=== PATIENT | male | born 1965 | race Caucasian/White ===

== ENCOUNTER 2017-07-22 13:10 | Emergency (ER) | payer BC, MEDICAID, OTHER ==
[~2017-07-22] VITALS: Ht 182.9 cm; Wt 105.4 kg
[2017-07-22] MEDS ORDERED: SODIUM CHLORIDE 0.9% 1,000ML IVBOLUS ONE ×2 (14:00→16:00)
[2017-07-22] MEDS ORDERED: SODIUM CHLORIDE FLUSH 10ML SYR IVF ONE (14:00)
[2017-07-22 14:14] LABS: BASOPHILS # (AUTO) 0.06 x10^3/uL (0-0.1); BASOPHILS % (AUTO) 1 % (0-1); EOSINOPHILS # (AUTO) 0.09 x10^3/uL (0-0.4); EOSINOPHILS % (AUTO) 1 % (1-7); LYMPHOCYTES # (AUTO) 2.31 x10^3/uL (1-3.4); LYMPHOCYTES % (AUTO) 24 % (22-44); MD NO; MEAN CORPUSCULAR HEMOGLOBIN 28.6 pg (27.5-34.5); MEAN CORPUSCULAR HGB CONC 34.3 g/dL (33.2-36.2); MEAN CORPUSCULAR VOLUME 83.4 fL (81-97); MEAN PLATELET VOLUME 8.7 fL (7.4-10.4); MONOCYTES % (AUTO) 7 % (2-9); NEUTROPHILS # (AUTO) 6.38 x10^3/uL (1.8-6.8); NEUTROPHILS % (AUTO) 67 % (42-75); PLATELET COUNT 311 x10^3/uL (130-400); RED BLOOD COUNT 6.03 x10^6/uL (4.38-5.82)
[2017-07-22 14:21] LABS: ALANINE AMINOTRANSFERASE 24 U/L (12-78); ALBUMIN 3.6 g/dL (3.4-5.0); ANION GAP 12 mmol/L (5-15); CALCIUM 8.9 mg/dL (8.5-10.1); CHLORIDE 97 mmol/L (98-107); CREATININE 1.28 mg/dL (0.7-1.3)
[2017-07-22 14:25] LABS: MICROSCOPIC NOT IND
[2017-07-22 14:26] LABS: ALKALINE PHOSPHATASE 117 U/L (45-117); BILIRUBIN,TOTAL 0.5 mg/dL (0.2-1.0); TOTAL PROTEIN 7.7 g/dL (6.4-8.2); TROPONIN I < 0.015 ng/mL (0.000-0.045)
[2017-07-22 14:33] LABS: CULTURE INDICATED? NO
[2017-07-22] MEDS ORDERED: OMNIPAQUE 350 MG/ML, 100ML BOTTLE ONE (15:12)
[2017-07-22 15:19] LABS: AMPHETAMINE SCREEN, URINE Negative (Negative); BARBITURATE SCREEN, URINE Negative (Negative); BENZODIAZEPINE SCREEN, URINE Negative (Negative); CANNABINOID SCREEN, URINE Negative (Negative); COCAINE SCREEN, URINE Negative (Negative); METHADONE SCREEN, URINE Negative (Negative); OPIATE SCREEN, URINE Negative (Negative)
[2017-07-22 16:12] LABS: FREE T4 (FREE THYROXINE) 1.37 ng/dL (0.76-1.46); THYROID STIMULATING HORMONE 1.19 mIU/L (0.358-3.740)
[2017-07-22 17:59] VITALS: BP 139/97
== END 2017-07-22 18:04 | disposition home or self-care (01) ==
LOC: ED 15:39
DX: R07.89 Other chest pain (principal); R10.12 Left upper quadrant pain; R10.32 Left lower quadrant pain; I10 Essential (primary) hypertension; E11.9 Type 2 diabetes mellitus without complications
CPT/HCPCS: 36415; 71045; 74177; 80053; 80307; 81003; 82962; 83690; 84439; 84443; 84484; 85025; 93005; 96360; 96361; 99285; J7030; Q9967

== ENCOUNTER 2017-09-14 19:14 | Inpatient (IN) | payer OTHER ==
[~2017-09-14] VITALS: Ht 177.8 cm; Wt 103.6 kg
[2017-09-14] MEDS ORDERED: ONDANSETRON 2MG/ML, 2ML ONE (19:57)
[2017-09-14] MEDS ORDERED: FAMOTIDINE 20 MG/2 ML ONE (19:57)
[2017-09-14 19:59] LABS: BASOPHILS # (AUTO) 0.04 x10^3/uL (0-0.1); BASOPHILS % (AUTO) 0 % (0-1); EOSINOPHILS # (AUTO) 0.15 x10^3/uL (0-0.4); EOSINOPHILS % (AUTO) 2 % (1-7); LYMPHOCYTES # (AUTO) 2.92 x10^3/uL (1-3.4); LYMPHOCYTES % (AUTO) 29 % (22-44); MD NO; MEAN CORPUSCULAR HEMOGLOBIN 29.7 pg (27.5-34.5); MEAN CORPUSCULAR HGB CONC 35.2 g/dL (33.2-36.2); MEAN CORPUSCULAR VOLUME 84.5 fL (81-97); MEAN PLATELET VOLUME 8.1 fL (7.4-10.4); MONOCYTES # (AUTO) 0.93 x10^3/uL (0.2-0.8); MONOCYTES % (AUTO) 9 % (2-9); NEUTROPHILS # (AUTO) 6.01 x10^3/uL (1.8-6.8); NEUTROPHILS % (AUTO) 60 % (42-75); PLATELET COUNT 296 x10^3/uL (130-400); RED BLOOD COUNT 5.33 x10^6/uL (4.38-5.82); RED CELL DISTRIBUTION WIDTH 12.7 % (9.4-14.8)
[2017-09-14] MEDS ORDERED: SODIUM CHLORIDE 0.9% 1,000ML IVBOLUS ONE ×2 (20:00→21:30)
[2017-09-14] MEDS ORDERED: FAMOTIDINE 20 MG/2 ML IVP ONE (20:00)
[2017-09-14] MEDS ORDERED: SODIUM CHLORIDE FLUSH 10ML SYR IVF ONE (20:00)
[2017-09-14] MEDS ORDERED: ONDANSETRON 2MG/ML, 2ML IVPush ONE (20:00)
[2017-09-14] MEDS ORDERED: METF500T5 PO (20:01)
[2017-09-14] MEDS ORDERED: LISI-167 PO (20:01)
[2017-09-14] MEDS ORDERED: BUPR-173 PO ×2 (20:01)
[2017-09-14] MEDS ORDERED: ATOR10TA9 PO (20:01)
[2017-09-14] MEDS ORDERED: TRAZ150T62 PO (20:01)
[2017-09-14 20:11] LABS: ALANINE AMINOTRANSFERASE 22 U/L (12-78); ALBUMIN 3.7 g/dL (3.4-5.0); ANION GAP 13 mmol/L (5-15); CALCIUM 8.5 mg/dL (8.5-10.1); CHLORIDE 103 mmol/L (98-107); CREATININE 1.37 mg/dL (0.7-1.3)
[2017-09-14 20:13] LABS: ALKALINE PHOSPHATASE 70 U/L (45-117); BILIRUBIN,TOTAL 0.6 mg/dL (0.2-1.0); TOTAL PROTEIN 7.2 g/dL (6.4-8.2)
[2017-09-14] MEDS ORDERED: SODIUM CHLORIDE 0.9% 1,000 ML IV ONE (22:23)
[2017-09-14] MEDS ORDERED: ACETAMINOPHEN 325 MG TABLET PO PRN (22:30)
[2017-09-14] MEDS ORDERED: HYDROcodone/APAP 5/325 TABLET PO PRN (22:30)
[2017-09-14] MEDS ORDERED: LABETALOL 5MG/ML, 20ML IVPush PRN (22:30)
[2017-09-14] MEDS ORDERED: DEXTROSE 4 GM TAB.CHEW PO PRN (22:30)
[2017-09-14] MEDS ORDERED: SODIUM CHLORIDE FLUSH 10ML SYR IVF PRN (22:30)
[2017-09-14] MEDS ORDERED: DOCUSATE 100 MG CAPSULE PO PRN (22:30)
[2017-09-14] MEDS ORDERED: ONDANSETRON 2MG/ML, 2ML IVPush PRN (22:30)
[2017-09-14] MEDS ORDERED: DEXTROSE 50%, 50ML SYRINGE IVPush PRN (22:30)
[2017-09-14] MEDS ORDERED: BISACODYL 10 MG SUPP PR PRN (22:30)
[2017-09-14] MEDS ORDERED: POLYETHYLENE GLYCOL 17 GM PACKET PO PRN (22:30)
[2017-09-14] MEDS ORDERED: ONDANSETRON ODT 4 MG PO PRN (22:30)
[2017-09-14] MEDS ORDERED: METOCLOPRAMIDE 5 MG/ML, 2ML IVPush PRN (22:30)
[2017-09-14] MEDS ORDERED: morphine SULFATE 10 MG/ML, 1ML IVPush PRN (22:30)
[2017-09-14] MEDS ORDERED: GLUCAGON 1 MG IM PRN (22:30)
[2017-09-14] MEDS: FAMOTIDINE 20 MG/2 ML IVPush SCH (23:20)
[2017-09-15] MEDS: LACTATED RINGERS 1,000 ML IV SCH ×2 (00:02→05:20)
[2017-09-15] MEDS: HEPARIN 5,000 UNITS/ML, 1ML SQ SCH ×2 (00:02→08:27)
[2017-09-15 00:15] VITALS: BP 123/74
[2017-09-15 01:23] VITALS: BP 124/82
[2017-09-15 03:32] LABS: MICROSCOPIC NOT IND
[2017-09-15 03:35] LABS: CULTURE INDICATED? NO
[2017-09-15 05:34] LABS: BASOPHILS # (AUTO) 0.03 x10^3/uL (0-0.1); BASOPHILS % (AUTO) 0 % (0-1); EOSINOPHILS # (AUTO) 0.17 x10^3/uL (0-0.4); EOSINOPHILS % (AUTO) 2 % (1-7); LYMPHOCYTES # (AUTO) 2.96 x10^3/uL (1-3.4); LYMPHOCYTES % (AUTO) 32 % (22-44); MD NO; MEAN CORPUSCULAR HEMOGLOBIN 29.4 pg (27.5-34.5); MEAN CORPUSCULAR HGB CONC 34.1 g/dL (33.2-36.2); MEAN CORPUSCULAR VOLUME 86.1 fL (81-97); MONOCYTES % (AUTO) 9 % (2-9); NEUTROPHILS # (AUTO) 5.19 x10^3/uL (1.8-6.8); NEUTROPHILS % (AUTO) 57 % (42-75); PLATELET COUNT 261 x10^3/uL (130-400); RED BLOOD COUNT 4.81 x10^6/uL (4.38-5.82); RED CELL DISTRIBUTION WIDTH 12.4 % (9.4-14.8)
[2017-09-15 05:43] LABS: ANION GAP 9 mmol/L (5-15); CHLORIDE 106 mmol/L (98-107)
[2017-09-15 05:47] LABS: ALANINE AMINOTRANSFERASE 16 U/L (12-78); ALKALINE PHOSPHATASE 61 U/L (45-117); BILIRUBIN,TOTAL 0.5 mg/dL (0.2-1.0); CREATININE 0.96 mg/dL (0.7-1.3); TOTAL PROTEIN 6.1 g/dL (6.4-8.2)
[2017-09-15 06:53] VITALS: BP 129/82
[2017-09-15] MEDS: INSULIN LISPRO 100 UNITS/ML, PEN SQ-INSULIN SCH ×2 (07:00→11:00)
[2017-09-15] MEDS: FAMOTIDINE 20 MG/2 ML IVPush SCH (08:27)
[2017-09-15] MEDS ORDERED: SODIUM CHLORIDE FLUSH 10ML SYR IVF SCH (09:00)
[2017-09-15] MEDS ORDERED: BUPROPION SR 100 MG TABLET PO SCH (09:00)
[2017-09-15 12:23] VITALS: BP 125/81
[2017-09-15] MEDS ORDERED: ONDA4TAB10 PO (13:09)
[2017-09-15] MEDS ORDERED: TRAZODONE 150MG TABLET PO SCH (21:00)
[2017-09-15] MEDS ORDERED: ATORVASTATIN 10 MG TABLET PO SCH (21:00)
== END 2017-09-15 14:56 | disposition home or self-care (01) | DRG 682 ==
LOC: ED 21:04 → EDIP 22:23 → 4EST 23:41
PROVIDERS: ADMIT Internal Medicine; ATTEND Internal Medicine
DX: N17.9 Acute kidney failure, unspecified (principal); K85.00 Idiopathic acute pancreatitis without necrosis or infection; E11.65 Type 2 diabetes mellitus with hyperglycemia; E78.00 Pure hypercholesterolemia, unspecified; E78.5 Hyperlipidemia, unspecified; F32.9 Major depressive disorder, single episode, unspecified; G89.29 Other chronic pain; M54.9 Dorsalgia, unspecified; R00.0 Tachycardia, unspecified; I10 Essential (primary) hypertension; Z66 Do not resuscitate; Z80.0 Family history of malignant neoplasm of digestive organs
CPT/HCPCS: 36415; 99285; S0028; 76700; 80053; 81003; 82962; 83036; 83631; 83690; 83735; 84100; 85025; 89055; 96361; 96374; 96375; J1644; J2405; J7030; J7120

== ENCOUNTER 2018-05-25 23:13 | Inpatient (IN) | payer OTHER ==
[~2018-05-25] VITALS: Ht 182.9 cm; Wt 100.3 kg
[~2018-05-25 23:13] MED LIST: ATOR10TA9 PO; BUPR-173 PO; LISI-167 PO; METF500T17 PO; ONDA4TAB10 PO; TRAZ150T62 PO
[2018-05-25] MEDS ORDERED: NITROGLYCERIN SINGLE TAB 0.4 MG SL ONE (23:47)
[2018-05-25] MEDS ORDERED: ASPIRIN 81 MG TABLET CHEW ONE (23:48)
[2018-05-25 23:52] LABS: BASOPHILS # (AUTO) 0.02 x10^3/uL (0-0.1); BASOPHILS % (AUTO) 0 % (0-1); EOSINOPHILS # (AUTO) 0.05 x10^3/uL (0-0.4); EOSINOPHILS % (AUTO) 1 % (1-7); LYMPHOCYTES # (AUTO) 2.46 x10^3/uL (1-3.4); LYMPHOCYTES % (AUTO) 22 % (22-44); MD NO; MEAN CORPUSCULAR HEMOGLOBIN 28.1 pg (27.5-34.5); MEAN CORPUSCULAR HGB CONC 33.4 g/dL (33.2-36.2); MEAN CORPUSCULAR VOLUME 84.2 fL (81-97); MEAN PLATELET VOLUME 8.3 fL (7.4-10.4); MONOCYTES # (AUTO) 0.85 x10^3/uL (0.2-0.8); MONOCYTES % (AUTO) 8 % (2-9); NEUTROPHILS # (AUTO) 7.94 x10^3/uL (1.8-6.8); NEUTROPHILS % (AUTO) 70 % (42-75); PLATELET COUNT 321 x10^3/uL (130-400); RED BLOOD COUNT 5.68 x10^6/uL (4.38-5.82); RED CELL DISTRIBUTION WIDTH 12.1 % (9.4-14.8)
[2018-05-26] MEDS ORDERED: NITROGLYCERIN SINGLE TAB 0.4 MG SL PRN
[2018-05-26] MEDS ORDERED: SODIUM CHLORIDE FLUSH 10ML SYR IVF ONE
[2018-05-26] MEDS ORDERED: ASPIRIN 81 MG TABLET CHEW PO ONE
--- NOTE | 2018-05-26 00:02 | NUR ---
PT HERE FOR 510 CHEST PAIN THAT STARTED 2 DAYS AGO. PAIN IS STERNAL AND NON RADIATING. PT TOOK 325 ASA PRIOR TO ARRIVAL. PIV PLACED. PT MEDICATED WITH 162 ASA AND 0.4 OF SL NITRO. VSS. PT RESTING. WILL REASSESS. 2 EKGS HAVE BEEN DONE. CALL LIGHT IN REACH
[2018-05-26 00:03] LABS: ALBUMIN 3.6 g/dL (3.4-5.0); ANION GAP 10 mmol/L (5-15); CALCIUM 8.5 mg/dL (8.5-10.1); CHLORIDE 99 mmol/L (98-107)
[2018-05-26] MEDS ORDERED: HEPARIN 25,000 UNITS/500ML PMX 500 ML IV PRN (00:30)
[2018-05-26] MEDS ORDERED: HEPARIN 5,000 UNITS/ML, 1ML IV ONE (00:30)
[2018-05-26] MEDS ORDERED: NITROGLYCERIN OINT 2%, 1GM TP ONE (00:30)
--- NOTE | 2018-05-26 00:33 | NUR ---
PT HAS A POSITIVE TROP. EKG DONE AND CODE CARDIAC CALLED. PTS BP LOW SO FLUIDS STARTED AND BELONGINGS IN 2 BAGS. PT PLACED OND ZOLL AND CLOTHING REMOVED. FLUIDS STARTED AND BP HAS IMPROVED. PT SAYS PAIN PAIN IS NOW 03/23. . [employer] CALLED.
[2018-05-26] MEDS ORDERED: EMPA1TAB5 PO (00:38)
[2018-05-26] MEDS ORDERED: LIDOCAINE 2%, 20ML ONE (00:58)
[2018-05-26] MEDS ORDERED: NITROGLYCERIN 5 MG/ML, 10ML ONE (00:58)
[2018-05-26] MEDS ORDERED: MIDAZOLAM 1 MG/ML, 5ML ONE (00:58)
[2018-05-26] MEDS ORDERED: BIVALIRUDIN 250 MG ONE (00:58)
[2018-05-26] MEDS ORDERED: VERAPAMIL 2.5 MG/ML, 2ML ONE (00:58)
[2018-05-26] MEDS ORDERED: FENTANYL PF 100 MCG/2ML ONE (00:58)
[2018-05-26] MEDS ORDERED: HEPARIN 1,000 UNITS/ML, 10ML ONE (00:58)
--- NOTE | 2018-05-26 00:58 | NUR ---
collaborative physician called, ready for PT. Pt transported to collaborative physician
[2018-05-26] MEDS ORDERED: hydrALAzine 20 MG/ML, 1ML IVPush PRN (01:00)
[2018-05-26] MEDS ORDERED: morphine SULFATE 10 MG/ML, 1ML IVPush PRN (01:00)
[2018-05-26] MEDS ORDERED: ONDANSETRON 2MG/ML, 2ML IVPush PRN (01:00)
[2018-05-26] MEDS ORDERED: PRASUGREL 10 MG TABLET ONE (01:46)
[2018-05-26] MEDS ORDERED: BIVALIRUDIN 250 MG in SODIUM CHLORIDE 0.9% 50 ML IV SCH (01:50)
[2018-05-26] MEDS ORDERED: SODIUM CHLORIDE 0.9% 1,000 ML IV SCH (01:50)
[2018-05-26 01:54] LABS: HEMOGLOBIN A1C 11.4 % (4.2-6.3)
[2018-05-26] MEDS ORDERED: ZOLPIDEM 5MG TABLET PO PRN (02:00)
[2018-05-26 02:10] VITALS: BP 115/74
[2018-05-26] MEDS: INSULIN LISPRO 100 UNITS/ML, PEN SQ-INSULIN SCH ×4 (06:52→22:03)
[2018-05-26] MEDS ORDERED: INSULIN LISPRO 100 UNITS/ML, PEN SQ-INSULIN SCH (07:00)
[2018-05-26] MEDS: METOPROLOL TARTRATE 25 MG TABLET PO SCH ×2 (08:24→16:30)
[2018-05-26] MEDS: LISINOPRIL 10 MG TABLET PO SCH (09:50)
[2018-05-26] MEDS: ASPIRIN 81 MG TABLET EC PO SCH (09:50)
[2018-05-26] MEDS: BUPROPION SR 100 MG TABLET PO SCH ×2 (10:20→21:36)
[2018-05-26] MEDS: PRASUGREL 10 MG TABLET PO SCH (11:05)
[2018-05-26 16:09] VITALS: BP 102/67
[2018-05-26 19:35] VITALS: BP 98/63
[2018-05-26] MEDS: ATORVASTATIN 80 MG TABLET PO SCH (21:36)
[2018-05-26] MEDS: INSULIN GLARGINE 100 UNITS/ML, PEN SQ-INSULIN SCH (22:04)
[2018-05-26] MEDS: ACETAMINOPHEN 325 MG TABLET PO PRN (22:04)
[2018-05-27] VITALS (7 sets, daily range): BP systolic 90–110; BP diastolic 60–74
[2018-05-27] MEDS: TRAZODONE 150MG TABLET PO SCH ×2 (00:44→01:00)
[2018-05-27] MEDS: METOPROLOL TARTRATE 25 MG TABLET PO SCH ×3 (01:13→17:45)
[2018-05-27 05:27] LABS: BASOPHILS # (AUTO) 0.03 x10^3/uL (0-0.1); BASOPHILS % (AUTO) 0 % (0-1); EOSINOPHILS # (AUTO) 0.07 x10^3/uL (0-0.4); EOSINOPHILS % (AUTO) 1 % (1-7); LYMPHOCYTES # (AUTO) 2.14 x10^3/uL (1-3.4); LYMPHOCYTES % (AUTO) 19 % (22-44); MD NO; MEAN CORPUSCULAR HEMOGLOBIN 28.4 pg (27.5-34.5); MEAN CORPUSCULAR HGB CONC 33.6 g/dL (33.2-36.2); MEAN CORPUSCULAR VOLUME 84.7 fL (81-97); MEAN PLATELET VOLUME 7.6 fL (7.4-10.4); MONOCYTES # (AUTO) 1.24 x10^3/uL (0.2-0.8); MONOCYTES % (AUTO) 11 % (2-9); NEUTROPHILS # (AUTO) 7.92 x10^3/uL (1.8-6.8); NEUTROPHILS % (AUTO) 70 % (42-75); PLATELET COUNT 296 x10^3/uL (130-400); RED BLOOD COUNT 5.15 x10^6/uL (4.38-5.82); RED CELL DISTRIBUTION WIDTH 12.1 % (9.4-14.8)
[2018-05-27 05:42] LABS: CHLORIDE 105 mmol/L (98-107)
[2018-05-27 05:51] LABS: ALANINE AMINOTRANSFERASE 33 U/L (12-78); ALBUMIN 3.1 g/dL (3.4-5.0); ALKALINE PHOSPHATASE 87 U/L (45-117); ANION GAP 7 mmol/L (5-15); BILIRUBIN,TOTAL 0.6 mg/dL (0.2-1.0); CALCIUM 8.1 mg/dL (8.5-10.1); CHOL/HDL RATIO 3.5; CHOLESTEROL, TOTAL 113 mg/dL (140-239); CREATININE 0.85 mg/dL (0.7-1.3); HDL CHOL % 28 % (26-37); HDL CHOLESTEROL (DIRECT) 32 mg/dL (40-60); LDL CHOLESTEROL,CALCULATED 56 mg/dL (54-169); LDL/HDL RATIO 1.8 (0.5-3.0); TOTAL PROTEIN 6.3 g/dL (6.4-8.2); TRIGLYCERIDES 124 mg/dL (50-200); VLDL CHOLESTEROL 25 mg/dL (0-25)
[2018-05-27] MEDS: ACETAMINOPHEN 325 MG TABLET PO PRN (07:50)
[2018-05-27] MEDS: BUPROPION SR 100 MG TABLET PO SCH ×2 (07:50→20:05)
[2018-05-27] MEDS: ASPIRIN 81 MG TABLET EC PO SCH (07:50)
[2018-05-27] MEDS: PRASUGREL 10 MG TABLET PO SCH (07:50)
[2018-05-27] MEDS: LISINOPRIL 10 MG TABLET PO SCH (07:51)
[2018-05-27] MEDS: INSULIN LISPRO 100 UNITS/ML, PEN SQ-INSULIN SCH ×4 (07:51→21:13)
[2018-05-27] MEDS ORDERED: METOPROLOL TARTRATE 25 MG TABLET PO SCH (08:30)
[2018-05-27] MEDS: ATORVASTATIN 80 MG TABLET PO SCH (20:04)
[2018-05-27] MEDS: INSULIN GLARGINE 100 UNITS/ML, PEN SQ-INSULIN SCH (21:14)
[2018-05-28] VITALS: BP 101/67
[2018-05-28 03:10] VITALS: BP 95/60
[2018-05-28] MEDS: METOPROLOL TARTRATE 25 MG TABLET PO SCH (03:16)
[2018-05-28 05:23] LABS: BASOPHILS # (AUTO) 0.03 x10^3/uL (0-0.1); BASOPHILS % (AUTO) 0 % (0-1); EOSINOPHILS # (AUTO) 0.22 x10^3/uL (0-0.4); EOSINOPHILS % (AUTO) 2 % (1-7); LYMPHOCYTES # (AUTO) 2.42 x10^3/uL (1-3.4); LYMPHOCYTES % (AUTO) 22 % (22-44); MD NO; MEAN CORPUSCULAR HEMOGLOBIN 29.1 pg (27.5-34.5); MEAN CORPUSCULAR HGB CONC 34.6 g/dL (33.2-36.2); MEAN PLATELET VOLUME 7.9 fL (7.4-10.4); MONOCYTES # (AUTO) 1.41 x10^3/uL (0.2-0.8); MONOCYTES % (AUTO) 13 % (2-9); NEUTROPHILS # (AUTO) 6.97 x10^3/uL (1.8-6.8); NEUTROPHILS % (AUTO) 63 % (42-75); PLATELET COUNT 292 x10^3/uL (130-400); RED CELL DISTRIBUTION WIDTH 12.4 % (9.4-14.8)
[2018-05-28 05:32] LABS: ALANINE AMINOTRANSFERASE 37 U/L (12-78); ALBUMIN 2.8 g/dL (3.4-5.0); ANION GAP 9 mmol/L (5-15); CALCIUM 8.3 mg/dL (8.5-10.1); CHLORIDE 105 mmol/L (98-107)
[2018-05-28 05:35] LABS: ALKALINE PHOSPHATASE 82 U/L (45-117); BILIRUBIN,TOTAL 0.6 mg/dL (0.2-1.0); CREATININE 0.94 mg/dL (0.7-1.3); TOTAL PROTEIN 6.4 g/dL (6.4-8.2)
[2018-05-28] MEDS: INSULIN LISPRO 100 UNITS/ML, PEN SQ-INSULIN SCH (07:00)
[2018-05-28 07:05] VITALS: BP 91/61
[2018-05-28] MEDS ORDERED: MAGNESIUM SULFATE PMX 2GM/50ML 50 ML IV ONE (08:00)
[2018-05-28 08:30] VITALS: BP 96/66
[2018-05-28] MEDS: BUPROPION SR 100 MG TABLET PO SCH (08:32)
[2018-05-28] MEDS: ASPIRIN 81 MG TABLET EC PO SCH (08:32)
[2018-05-28] MEDS: PRASUGREL 10 MG TABLET PO SCH (08:32)
[2018-05-28] MEDS ORDERED: METOPROLOL TARTRATE 25 MG TABLET PO SCH (09:00)
[2018-05-28] MEDS ORDERED: LISINOPRIL 5 MG TABLET PO SCH (09:00)
[2018-05-28] MEDS ORDERED: METO25TA35 PO (09:52)
[2018-05-28] MEDS ORDERED: PRAS10TA4 PO (09:52)
[2018-05-28] MEDS ORDERED: ATOR-2 PO (09:52)
[2018-05-28] MEDS ORDERED: LISI5TAB7 PO (09:52)
[2018-05-28] MEDS ORDERED: ASPI81TA45 PO (09:52)
== END 2018-05-28 12:11 | disposition home or self-care (01) | DRG 247 ==
LOC: ED 05-26 00:46 → EDIP 05-26 00:53 → CSU 05-26 02:05 → 5SO 05-26 14:03 → DCLOUNGE 05-28 11:19
PROVIDERS: ADMIT Family Medicine; ATTEND Family Medicine
PROC: 027036Z Dilation of Coronary Artery, One Artery with Three Drug-eluting Intraluminal Devices, Percutaneous Approach (ICD-10-PCS; principal; 2018-05-26)
PROC: 02C03ZZ Extirpation of Matter from Coronary Artery, One Artery, Percutaneous Approach (ICD-10-PCS; 2018-05-26)
PROC: 4A023N7 Measurement of Cardiac Sampling and Pressure, Left Heart, Percutaneous Approach (ICD-10-PCS; 2018-05-26)
PROC: B2111ZZ Fluoroscopy of Multiple Coronary Arteries using Low Osmolar Contrast (ICD-10-PCS; 2018-05-26)
PROC: B2151ZZ Fluoroscopy of Left Heart using Low Osmolar Contrast (ICD-10-PCS; 2018-05-26)
DX: I21.19 ST elevation (STEMI) myocardial infarction involving other coronary artery of inferior wall (principal); E87.1 Hypo-osmolality and hyponatremia; I50.30 Unspecified diastolic (congestive) heart failure; D72.829 Elevated white blood cell count, unspecified; E11.65 Type 2 diabetes mellitus with hyperglycemia; E78.5 Hyperlipidemia, unspecified; G89.29 Other chronic pain; I11.0 Hypertensive heart disease with heart failure; I25.10 Atherosclerotic heart disease of native coronary artery without angina pectoris; I25.5 Ischemic cardiomyopathy; Z79.02 Long term (current) use of antithrombotics/antiplatelets; Z79.82 Long term (current) use of aspirin; Z79.899 Other long term (current) drug therapy; Z87.891 Personal history of nicotine dependence; Z95.5 Presence of coronary angioplasty implant and graft
CPT/HCPCS: 36415; 74018; 92973; 93458; 99291; C9600; J3490; 71045; 80048; 80053; 80061; 82040; 82962; 83036; 83735; 84100; 84484; 85025; 85347; 85520; 87081; 93005; 93306; 99156; 99157; C1760; C1769; C1894; G0378; J0583; J1644; J2250; J3010; C1725; C1757; C1874; C1887; J1815; J2270; J3475; J7030; Q9967

== ENCOUNTER 2019-04-24 14:02 | Observation (INO) | payer OTHER ==
[~2019-04-24] VITALS: Ht 182.9 cm; Wt 104.5 kg
[~2019-04-24 14:02] MED LIST changes: +ASPI81TA45 PO; +ATOR-2 PO; +EMPA1TAB5 PO; +LISI5TAB7 PO; +METO25TA35 PO; +PRAS10TA4 PO
--- NOTE | 2019-04-24 15:21 | NUR ---
PT BROUGHT BACK FROM TRIAGE WITH CHIEF COMPLAINT OF 2 wks alternating constipation & diarrhea. MULTIPLE episodes large amount of dark red blood with clots from rectum today w/ ABD cramping. PATIENT IS ALERT, ORIENTED, WARM AND DRY. VSS
[2019-04-24] MEDS ORDERED: ONDANSETRON 2MG/ML, 2ML IVPush ONE (15:30)
[2019-04-24] MEDS ORDERED: SODIUM CHLORIDE 0.9% 1,000ML IVBOLUS ONE (15:30)
[2019-04-24] MEDS ORDERED: MORPHINE SULFATE 4 MG/ML, 1ML IVPush PRN (15:30)
[2019-04-24] MEDS ORDERED: MORPHINE SULFATE 4 MG/ML, 1ML ONE (15:30)
[2019-04-24] MEDS ORDERED: ONDANSETRON 2MG/ML, 2ML ONE (15:30)
[2019-04-24 15:42] LABS: BASOPHILS % (AUTO) 1 % (0-1); EOSINOPHILS # (AUTO) 0.18 x10^3/uL (0-0.4); EOSINOPHILS % (AUTO) 2 % (1-7); LYMPHOCYTES # (AUTO) 1.92 x10^3/uL (1-3.4); LYMPHOCYTES % (AUTO) 16 % (22-44); MD NO; MEAN CORPUSCULAR HEMOGLOBIN 28.7 pg (27.5-34.5); MEAN CORPUSCULAR HGB CONC 33.5 g/dL (33.2-36.2); MEAN CORPUSCULAR VOLUME 85.7 fL (81-97); MEAN PLATELET VOLUME 7.5 fL (7.4-10.4); MONOCYTES # (AUTO) 1.11 x10^3/uL (0.2-0.8); MONOCYTES % (AUTO) 9 % (2-9); NEUTROPHILS # (AUTO) 8.49 x10^3/uL (1.8-6.8); NEUTROPHILS % (AUTO) 72 % (42-75); PLATELET COUNT 376 x10^3/uL (130-400); RED BLOOD COUNT 5.81 x10^6/uL (4.38-5.82); RED CELL DISTRIBUTION WIDTH 12.1 % (9.4-14.8)
[2019-04-24 15:50] LABS: ALANINE AMINOTRANSFERASE 25 U/L (12-78); ALBUMIN 3.7 g/dL (3.4-5.0); ANION GAP 6 mmol/L (5-15); CALCIUM 8.8 mg/dL (8.5-10.1); CHLORIDE 103 mmol/L (98-107); CREATININE 1.19 mg/dL (0.7-1.3); INTERNATIONAL NORMALIZED RATIO 0.92 (0.93-1.1); PROTHROMBIN TIME 9.7 Seconds (9.6-11.5)
[2019-04-24 15:53] LABS: ALKALINE PHOSPHATASE 97 U/L (45-117); BILIRUBIN,TOTAL 0.5 mg/dL (0.2-1.0); TOTAL PROTEIN 8.1 g/dL (6.4-8.2)
--- NOTE | 2019-04-24 15:59 | NUR ---
RESTING IN BED, CALL LIGHT IN REACH.
--- NOTE | 2019-04-24 16:45 | NUR ---
PT RESTING IN BED, CALL LIGHT IN REACH. NO BLEEDING AT THIS TIME
--- NOTE | 2019-04-24 18:08 | NUR ---
[facility] AT BEDSIDE FOR EVALUATION
[2019-04-24] MEDS: SODIUM CHLORIDE 0.9% 1,000 ML IV SCH (18:20)
[2019-04-24] MEDS ORDERED: ONDANSETRON 2MG/ML, 2ML IVPush PRN (18:30)
[2019-04-24] MEDS ORDERED: morphine SULFATE 10 MG/ML, 1ML IVPush PRN (18:30)
[2019-04-24] MEDS: INSULIN LISPRO 100 UNITS/ML, PEN SQ-INSULIN SCH ×2 (18:30→22:30)
--- NOTE | 2019-04-24 18:46 | NUR ---
[facility] REQUESTED REPORT TO MARY REDD
--- NOTE | 2019-04-24 19:27 | NUR ---
REPORT TO MUNIR REDD ALL QUESTIONS ADDRESSED. PT READY FOR TRANSFER TO FLOOR
[2019-04-24] MEDS: ATORVASTATIN 80 MG TABLET PO SCH (21:06)
[2019-04-24] MEDS: METOPROLOL TARTRATE 25 MG TAB PO SCH (21:06)
[2019-04-24 21:07] VITALS: BP 149/90
[2019-04-24] MEDS ORDERED: OMNIPAQUE 350 MG/ML, 100ML BOTTLE ONE (23:37)
[2019-04-25 01:15] VITALS: BP 129/83
[2019-04-25] MEDS: INSULIN LISPRO 100 UNITS/ML, PEN SQ-INSULIN SCH ×6 (02:30→22:08)
[2019-04-25 03:46] LABS: BASOPHILS # (AUTO) 0.03 x10^3/uL (0-0.1); BASOPHILS % (AUTO) 0 % (0-1); EOSINOPHILS # (AUTO) 0.24 x10^3/uL (0-0.4); EOSINOPHILS % (AUTO) 3 % (1-7); LYMPHOCYTES # (AUTO) 2.61 x10^3/uL (1-3.4); LYMPHOCYTES % (AUTO) 28 % (22-44); MD NO; MEAN CORPUSCULAR HEMOGLOBIN 28.8 pg (27.5-34.5); MEAN CORPUSCULAR HGB CONC 33.7 g/dL (33.2-36.2); MEAN CORPUSCULAR VOLUME 85.5 fL (81-97); MEAN PLATELET VOLUME 7.5 fL (7.4-10.4); MONOCYTES # (AUTO) 0.96 x10^3/uL (0.2-0.8); MONOCYTES % (AUTO) 11 % (2-9); NEUTROPHILS # (AUTO) 5.32 x10^3/uL (1.8-6.8); NEUTROPHILS % (AUTO) 58 % (42-75); PLATELET COUNT 308 x10^3/uL (130-400); RED BLOOD COUNT 5.23 x10^6/uL (4.38-5.82); RED CELL DISTRIBUTION WIDTH 12.4 % (9.4-14.8)
[2019-04-25 03:58] LABS: ANION GAP 7 mmol/L (5-15); CHLORIDE 107 mmol/L (98-107)
[2019-04-25] MEDS: SODIUM CHLORIDE 0.9% 1,000 ML IV SCH ×2 (04:09→14:02)
[2019-04-25] MEDS: LISINOPRIL 5 MG TABLET PO SCH (07:13)
[2019-04-25] MEDS: BUPROPION SR 100 MG TABLET PO SCH (07:13)
[2019-04-25] MEDS: METOPROLOL TARTRATE 25 MG TAB PO SCH ×2 (08:35→21:21)
[2019-04-25 08:39] VITALS: BP 126/81
[2019-04-25 14:00] VITALS: BP 126/82
[2019-04-25] MEDS ORDERED: GOLYTELY 4,000ML ORAL.SOL PO ONE (18:30)
[2019-04-25] MEDS: [UNRECOGNIZED DRUG - REMARK] HOMEMEDPO SCH (21:00)
[2019-04-25] MEDS: ATORVASTATIN 80 MG TABLET PO SCH (21:00)
[2019-04-25] MEDS ORDERED: EMPAGLIFLOZIN PO SCH (21:00)
[2019-04-25] MEDS ORDERED: LORazepam 2 MG/ML, 1ML IVPush PRN (21:00)
[2019-04-25] MEDS ORDERED: METFORMIN PO SCH (21:00)
[2019-04-25 21:10] VITALS: BP 131/86
[2019-04-26] MEDS: SODIUM CHLORIDE 0.9% 1,000 ML IV SCH (00:20)
[2019-04-26 01:56] VITALS: BP 130/83
[2019-04-26] MEDS: INSULIN LISPRO 100 UNITS/ML, PEN SQ-INSULIN SCH ×4 (02:30→14:30)
[2019-04-26 05:57] LABS: BASOPHILS # (AUTO) 0.02 x10^3/uL (0-0.1); BASOPHILS % (AUTO) 0 % (0-1); EOSINOPHILS # (AUTO) 0.19 x10^3/uL (0-0.4); EOSINOPHILS % (AUTO) 3 % (1-7); LYMPHOCYTES # (AUTO) 2.02 x10^3/uL (1-3.4); LYMPHOCYTES % (AUTO) 27 % (22-44); MD NO; MEAN CORPUSCULAR HEMOGLOBIN 29.1 pg (27.5-34.5); MEAN CORPUSCULAR HGB CONC 34.1 g/dL (33.2-36.2); MEAN CORPUSCULAR VOLUME 85.2 fL (81-97); MEAN PLATELET VOLUME 7.4 fL (7.4-10.4); MONOCYTES # (AUTO) 0.73 x10^3/uL (0.2-0.8); MONOCYTES % (AUTO) 10 % (2-9); NEUTROPHILS # (AUTO) 4.58 x10^3/uL (1.8-6.8); NEUTROPHILS % (AUTO) 61 % (42-75); PLATELET COUNT 306 x10^3/uL (130-400); RED BLOOD COUNT 5.25 x10^6/uL (4.38-5.82); RED CELL DISTRIBUTION WIDTH 12.1 % (9.4-14.8)
[2019-04-26 06:06] LABS: CHLORIDE 108 mmol/L (98-107)
[2019-04-26 06:07] LABS: ANION GAP 10 mmol/L (5-15); CALCIUM 8.4 mg/dL (8.5-10.1); CREATININE 0.77 mg/dL (0.7-1.3)
[2019-04-26 07:13] VITALS: BP 130/75
[2019-04-26] MEDS: [UNRECOGNIZED DRUG - REMARK] HOMEMEDPO SCH (09:00)
[2019-04-26] MEDS ORDERED: PROPOFOL 10 MG/ML, 20ML ONE ×3 (09:08)
[2019-04-26] MEDS: LISINOPRIL 5 MG TABLET PO SCH (12:46)
[2019-04-26] MEDS: BUPROPION SR 100 MG TABLET PO SCH (12:46)
[2019-04-26] MEDS: METOPROLOL TARTRATE 25 MG TAB PO SCH (12:46)
[2019-04-26 13:16] VITALS: BP 128/79
== END 2019-04-26 16:59 | disposition home or self-care (01) ==
LOC: ED 16:32 → INTOOBSV 17:43 → EDIP 17:43 → 3N 19:39
PROVIDERS: ADMIT Hospitalist; ATTEND Hospitalist
DX: K60.2 Anal fissure, unspecified (principal); K92.1 Melena; K92.2 Gastrointestinal hemorrhage, unspecified; E78.5 Hyperlipidemia, unspecified; I10 Essential (primary) hypertension; E11.9 Type 2 diabetes mellitus without complications; I25.10 Atherosclerotic heart disease of native coronary artery without angina pectoris; I25.2 Old myocardial infarction; K59.00 Constipation, unspecified; K63.5 Polyp of colon; K64.4 Residual hemorrhoidal skin tags; K64.8 Other hemorrhoids; Z66 Do not resuscitate; Z82.49 Family history of ischemic heart disease and other diseases of the circulatory system; Z82.5 Family history of asthma and other chronic lower respiratory diseases; Z87.19 Personal history of other diseases of the digestive system; Z95.5 Presence of coronary angioplasty implant and graft
CPT/HCPCS: 36415; 45384; 72193; 80048; 80053; 82378; 82962; 83036; 85014; 85018; 85025; 85610; 85730; 86850; 86900; 88305; 96374; 96375; 96376; 99285; G0378; J2060; J2270; J2405; J2704; J7030; Q9967; 96361; J1815

== ENCOUNTER 2020-03-03 14:17 | Inpatient (IN) | payer BC, OTHER ==
[~2020-03-03] VITALS: Ht 182.9 cm; Wt 110.0 kg
--- NOTE | 2020-03-03 15:12 | NUR ---
PER PT HE HAS NOT TAKEN HIS MEDICATIONS IN MONTHS DUE TO INABILITY TO PAY FOR THEM.
[2020-03-03 15:14] LABS: BASOPHILS % (AUTO) 1 % (0-1); EOSINOPHILS % (AUTO) 2 % (1-7); LYMPHOCYTES % (AUTO) 22 % (22-44); MEAN CORPUSCULAR HEMOGLOBIN 28.8 pg (27.5-34.5); MEAN CORPUSCULAR HGB CONC 34.4 g/dL (33.2-36.2); MEAN PLATELET VOLUME 8.7 fL (7.4-10.4); MONOCYTES % (AUTO) 9 % (2-9); NEUTROPHILS % (AUTO) 67 % (42-75); PLATELET COUNT 305 x10^3/uL (130-400); RED BLOOD COUNT 6.09 x10^6/uL (4.38-5.82); RED CELL DISTRIBUTION WIDTH 12.6 % (9.4-14.8)
[2020-03-03 15:22] LABS: MD NO
[2020-03-03 15:25] LABS: ALANINE AMINOTRANSFERASE 36 U/L (12-78); ALBUMIN 3.6 g/dL (3.4-5.0); ANION GAP 8 mmol/L (5-15); CALCIUM 8.8 mg/dL (8.5-10.1); CHLORIDE 98 mmol/L (98-107); CREATININE 1.26 mg/dL (0.7-1.3)
[2020-03-03 15:30] LABS: ALKALINE PHOSPHATASE 137 U/L (45-117); BILIRUBIN,TOTAL 0.6 mg/dL (0.2-1.0); TOTAL PROTEIN 8.1 g/dL (6.4-8.2); TROPONIN I < 0.015 ng/mL (0.000-0.045)
--- NOTE | 2020-03-03 15:32 | NUR ---
CRITICAL LAB: JESSICA Anthony
--- NOTE | 2020-03-03 16:10 | NUR ---
PT RESTING IN BED READING A BOOK. VSS
--- NOTE | 2020-03-03 17:34 | NUR ---
pt sleeping in bed
[2020-03-03] MEDS ORDERED: INSULIN SINGLE DOSE, ER ONE (18:25)
[2020-03-03] MEDS ORDERED: INSULIN REGULAR 100 UNITS/ML, 3ML VIAL IVPush ONE (18:30)
--- NOTE | 2020-03-03 18:44 | NUR ---
BEDSIDE REPORT RECEIVED FROM FARNAZ REDD
[2020-03-03 18:48] LABS: MICROSCOPIC NOT IND
--- NOTE | 2020-03-03 19:08 | NUR ---
PT SITTING UPRIGHT ON EZIO GARCES VSS. PT SWABBED FOR COVID, SAMPLE WALKED TO LAB. PT DENIES ANY ADDITIONAL NEEDS AT THIS TIME. CALL LIGHT AND PERSONAL BELONGINGS WITHIN REACH. ISOLATION PRECAUTIONS IN PLACE.
--- NOTE | 2020-03-03 20:04 | NUR ---
PT SITTING UPRIGHT ON [place], [place], VSS. PT DENIES ANY ADDITIONAL NEEDS AT THIS TIME. CALL LIGHT AND PERSONAL BELONGINGS WITHIN REACH. ISOLATION PRECAUTIONS IN PLACE.
--- NOTE | 2020-03-03 20:59 | NUR ---
PT SUPINE ON GURNEY, PROVIDED WARM BLANKETS AND WATER. PT DENIES ANY ADDITIONAL NEEDS AT THIS TIME. CALL LIGHT AND PERSONAL BELONGINGS WITHIN REACH. ISO PRECAUTIONS IN PLACE.
[2020-03-03] MEDS: ENOXAPARIN 40 MG/0.4 ML SQ SCH (21:30)
[2020-03-03] MEDS ORDERED: LIDODERM 5% PATCH TD PRN (21:30)
[2020-03-03] MEDS ORDERED: DOCUSATE 100 MG CAPSULE PO PRN (21:30)
[2020-03-03] MEDS ORDERED: ACETAMINOPHEN 325 MG TABLET PO PRN (21:30)
[2020-03-03] MEDS ORDERED: ENALAPRILAT 1.25 MG/ML, 2ML IVPush PRN (21:30)
[2020-03-03] MEDS ORDERED: MELATONIN 5 MG TABLET PO PRN (21:30)
[2020-03-03] MEDS: INSULIN LISPRO 100 UNITS/ML, PEN SQ-INSULIN SCH (21:30)
[2020-03-03] MEDS ORDERED: PHARMACY MAY ADJ FOR RENAL FX MC PRN (21:30)
[2020-03-03] MEDS ORDERED: NITROGLYCERIN 0.4 MG BOTTLE (25 TABS) SL PRN (21:30)
[2020-03-03] MEDS ORDERED: INSULIN LISPRO 100 UNITS/ML, PEN ONE ×2 (21:42→22:08)
[2020-03-03] MEDS ORDERED: MORPHINE SULFATE 4 MG/ML, 1ML ONE (21:42)
[2020-03-03] MEDS ORDERED: ENOXAPARIN 40 MG/0.4 ML ONE (21:42)
--- NOTE | 2020-03-03 21:55 | NUR ---
PT REFUSING INSULIN DOSAGE RX BY HOSPITALIST. "I AM TOO AFRAID OF NEEDLES, I CAN'T KEEP GETTING STUCK, NO NO NO, IM NOT DOING IT. IT'S NOT HAPPENING". ATTEMPT TO DISCUSS RISKS WITH PT. PT CONTINUES TO REFUSE INSULIN DOSAGE. DISCUSSION WITH ADMITTING HOSPITALIST, AWARE OF PT REFUSAL. PT STATES HE IS ALSO HAVING PAIN AND REQUESTING PAIN MEDS. WILL MEDICATE PER EMAR. PT REFUSING LOVENOX SHOT AT THIS TIME WELL.
[2020-03-03] MEDS ORDERED: MELATONIN 5 MG TABLET ONE (21:58)
[2020-03-03] MEDS: LACTATED RINGERS 1,000 ML IV SCH (22:01)
[2020-03-03] MEDS: morphine SULFATE 10 MG/ML, 1ML IVPush PRN (22:02)
--- NOTE | 2020-03-03 22:10 | NUR ---
PT MEDICATED PER EMAR. PT NOW AGREES TO INSULIN DOSAGE PER EMAR. "I HATE NEEDLES BUT I KNOW IT IS BEST FOR ME, I'LL DO IT, PLEASE JUST BE GENTLE". WILL MEDICATE PER EMAR.
[2020-03-03 22:54] LABS: TROPONIN I < 0.015 ng/mL (0.000-0.045)
--- NOTE | 2020-03-03 23:15 | NUR ---
PT SUPINE ON GURNEY, PROVIDED WARM BLANKETS. PT DENIES ANY ADDITIONAL NEEDS AT THIS TIME. CALL LIGHT AND PERSONAL BELONGINGS WITHIN REACH. ISO PRECAUTIONS IN PLACE.
--- NOTE | 2020-03-04 00:20 | NUR ---
Pt to be admitted to [facility], room 485. Report called to [place].
[2020-03-04 00:30] VITALS: BP 137/85
[2020-03-04 06:23] VITALS: BP 139/88
[2020-03-04] MEDS: morphine SULFATE 10 MG/ML, 1ML IVPush PRN (06:39)
[2020-03-04] MEDS: LACTATED RINGERS 1,000 ML IV SCH (07:59)
[2020-03-04] MEDS: INSULIN LISPRO 100 UNITS/ML, PEN SQ-INSULIN SCH ×4 (08:00→21:00)
[2020-03-04 09:05] LABS: ANION GAP 8 mmol/L (5-15); CALCIUM 8.3 mg/dL (8.5-10.1); CHLORIDE 104 mmol/L (98-107); CREATININE 0.91 mg/dL (0.7-1.3)
[2020-03-04 09:08] LABS: TROPONIN I < 0.015 ng/mL (0.000-0.045)
[2020-03-04 09:10] LABS: BASOPHILS % (AUTO) 1 % (0-1); EOSINOPHILS % (AUTO) 2 % (1-7); LYMPHOCYTES % (AUTO) 23 % (22-44); MEAN CORPUSCULAR HEMOGLOBIN 28.8 pg (27.5-34.5); MEAN CORPUSCULAR HGB CONC 34.3 g/dL (33.2-36.2); MEAN PLATELET VOLUME 8.3 fL (7.4-10.4); MONOCYTES % (AUTO) 9 % (2-9); NEUTROPHILS % (AUTO) 64 % (42-75); PLATELET COUNT 279 x10^3/uL (130-400); RED BLOOD COUNT 5.66 x10^6/uL (4.38-5.82); RED CELL DISTRIBUTION WIDTH 12.5 % (9.4-14.8)
[2020-03-04 09:29] LABS: MD NO
[2020-03-04] MEDS ORDERED: LORazepam 1MG TABLET ONE (11:58)
[2020-03-04 12:20] LABS: CHOL/HDL RATIO 5.9; LDL/HDL RATIO 3.4 (0.5-3.0)
[2020-03-04] MEDS: LORazepam 1MG TABLET PO PRN ×2 (12:23→21:42)
[2020-03-04 13:50] LABS: ESTIMATED AVERAGE GLUCOSE 355 mg/dL (0-126)
[2020-03-04] MEDS ORDERED: MAGNESIUM SULFATE PMX 2GM/50ML 50 ML IV ONE (15:00)
[2020-03-04] MEDS: ASPIRIN 325 MG TABLET PO SCH (15:28)
[2020-03-04] MEDS: BUPROPION 100 MG TABLET PO SCH (15:28)
[2020-03-04 15:30] VITALS: BP 111/76
[2020-03-04 20:00] VITALS: BP 119/83
[2020-03-04] MEDS ORDERED: TRAZODONE 50MG TABLET PO PRN (21:00)
[2020-03-04] MEDS: ENOXAPARIN 40 MG/0.4 ML SQ SCH (21:30)
[2020-03-04] MEDS: ATORVASTATIN 40 MG TABLET PO SCH (21:41)
[2020-03-04] MEDS: TRAZODONE 150MG TABLET PO SCH (21:41)
[2020-03-05 03:29] VITALS: BP 122/73
[2020-03-05 05:39] LABS: ANION GAP 5 mmol/L (5-15); CALCIUM 8.4 mg/dL (8.5-10.1); CHLORIDE 105 mmol/L (98-107)
[2020-03-05 05:41] LABS: CREATININE 0.95 mg/dL (0.7-1.3)
[2020-03-05 05:52] LABS: BASOPHILS % (AUTO) 1 % (0-1); EOSINOPHILS % (AUTO) 3 % (1-7); LYMPHOCYTES % (AUTO) 29 % (22-44); MEAN CORPUSCULAR HEMOGLOBIN 28.7 pg (27.5-34.5); MEAN CORPUSCULAR HGB CONC 34.4 g/dL (33.2-36.2); MEAN PLATELET VOLUME 8.8 fL (7.4-10.4); MONOCYTES % (AUTO) 10 % (2-9); NEUTROPHILS % (AUTO) 57 % (42-75); PLATELET COUNT 226 x10^3/uL (130-400); RED BLOOD COUNT 5.28 x10^6/uL (4.38-5.82); RED CELL DISTRIBUTION WIDTH 12.4 % (9.4-14.8)
[2020-03-05 06:00] LABS: MD NO
[2020-03-05] MEDS: ASPIRIN 325 MG TABLET PO SCH (06:00)
[2020-03-05] MEDS: LORazepam 1MG TABLET PO PRN ×3 (06:05→20:31)
[2020-03-05] MEDS: INSULIN LISPRO 100 UNITS/ML, PEN SQ-INSULIN SCH ×4 (07:00→20:34)
[2020-03-05 07:27] VITALS: BP 119/82
[2020-03-05] MEDS: BUPROPION 100 MG TABLET PO SCH ×2 (08:04→11:41)
[2020-03-05] MEDS ORDERED: REGADENOSON 0.4 MG/5 ML SYRINGE ONE (08:24)
[2020-03-05] MEDS ORDERED: metFORMIN 500 MG TABLET PO SCH ×2 (09:00→17:00)
[2020-03-05 13:50] VITALS: BP 126/76
[2020-03-05] MEDS: METOPROLOL TARTRATE 25 MG TAB PO SCH (14:29)
[2020-03-05] MEDS: PANTOPRAZOLE 40MG TABLET PO SCH (14:29)
[2020-03-05 14:41] LABS: ANION GAP 8 mmol/L (5-15); CALCIUM 8.2 mg/dL (8.5-10.1); CHLORIDE 104 mmol/L (98-107); CREATININE 1.04 mg/dL (0.7-1.3)
[2020-03-05] MEDS ORDERED: MAGNESIUM SULFATE PMX 2GM/50ML 50 ML IV ONE (16:00)
[2020-03-05] MEDS ORDERED: POTASSIUM CHLORIDE 20 MEQ TAB.ER.PRT PO ONE (16:00)
[2020-03-05] MEDS: GlyBURIDE 5 MG TABLET PO SCH (17:36)
[2020-03-05] MEDS ORDERED: METOPROLOL TARTRATE 25 MG TAB PO SCH (18:00)
[2020-03-05] MEDS: ATORVASTATIN 40 MG TABLET PO SCH (20:31)
[2020-03-05] MEDS: TRAZODONE 150MG TABLET PO SCH (20:31)
[2020-03-05] MEDS: ENOXAPARIN 40 MG/0.4 ML SQ SCH (20:31)
[2020-03-05 20:40] VITALS: BP 114/76
[2020-03-06 02:08] VITALS: BP 118/80
[2020-03-06] MEDS: PANTOPRAZOLE 40MG TABLET PO SCH (05:20)
[2020-03-06] MEDS: METOPROLOL TARTRATE 25 MG TAB PO SCH (05:20)
[2020-03-06] MEDS: ASPIRIN 325 MG TABLET PO SCH (05:20)
[2020-03-06 07:30] VITALS: BP 112/76
[2020-03-06] MEDS ORDERED: GlyBURIDE 5 MG TABLET PO SCH (08:00)
[2020-03-06] MEDS ORDERED: metFORMIN 500 MG TABLET PO SCH (08:00)
[2020-03-06] MEDS: INSULIN LISPRO 100 UNITS/ML, PEN SQ-INSULIN SCH ×2 (08:16→11:16)
[2020-03-06] MEDS ORDERED: METOPROLOL SUCCINATE 25 MG TAB.ER.24H PO SCH (08:30)
[2020-03-06] MEDS: GlyBURIDE 5 MG TABLET PO SCH (08:54)
[2020-03-06] MEDS: BUPROPION 100 MG TABLET PO SCH ×2 (08:54→11:55)
[2020-03-06] MEDS: LORazepam 1MG TABLET PO PRN (08:55)
[2020-03-06] MEDS ORDERED: LISINOPRIL 5 MG TABLET PO SCH (09:00)
[2020-03-06] MEDS ORDERED: METO25TA91 PO (12:29)
[2020-03-06] MEDS ORDERED: LISI5TAB7 PO (12:29)
[2020-03-06] MEDS ORDERED: AMOX1TAB64 PO (12:29)
[2020-03-06] MEDS ORDERED: ATOR40TA78 PO (12:29)
[2020-03-06] MEDS ORDERED: GLYB5TAB3 PO (12:29)
[2020-03-06] MEDS ORDERED: ASPI-515 PO (12:29)
[2020-03-06] MEDS ORDERED: BUPR100T11 PO (12:29)
[2020-03-06] MEDS ORDERED: METF500T PO (12:29)
[2020-03-06 12:45] VITALS: BP 120/78
[2020-03-06] MEDS ORDERED: METOPROLOL TARTRATE 25 MG TAB PO SCH (18:00)
[2020-03-07] MEDS ORDERED: ASPIRIN 81 MG TABLET CHEW PO SCH (06:00)
== END 2020-03-06 14:49 | disposition home or self-care (01) | DRG 309 ==
LOC: ED 15:56 → EDIP 18:36 → 4EST 03-04 01:12 → 5SO 03-04 18:05 → DCLOUNGE 03-06 14:46
PROVIDERS: ADMIT Family Medicine; ATTEND Internal Medicine
DX: I47.2 Ventricular tachycardia (principal); R45.851 Suicidal ideations; E11.65 Type 2 diabetes mellitus with hyperglycemia; E66.01 Morbid (severe) obesity due to excess calories; E78.2 Mixed hyperlipidemia; E83.42 Hypomagnesemia; F32.9 Major depressive disorder, single episode, unspecified; I10 Essential (primary) hypertension; Z83.3 Family history of diabetes mellitus; Z82.49 Family history of ischemic heart disease and other diseases of the circulatory system; Z83.6 Family history of other diseases of the respiratory system; I25.10 Atherosclerotic heart disease of native coronary artery without angina pectoris; I25.2 Old myocardial infarction; Z20.822 Contact with and (suspected) exposure to COVID-19; Z80.9 Family history of malignant neoplasm, unspecified; Z91.14 Patient's other noncompliance with medication regimen; Z72.820 Sleep deprivation; K04.7 Periapical abscess without sinus; Z91.19 Patient's noncompliance with other medical treatment and regimen; Z95.5 Presence of coronary angioplasty implant and graft; I49.3 Ventricular premature depolarization; Z68.32 Body mass index [BMI] 32.0-32.9, adult
CPT/HCPCS: 36415; 71045; 78452; 80048; 80053; 80061; 81003; 82962; 83036; 83735; 84100; 84443; 84484; 85025; 85379; 93005; 93017; 93306; 96374; 96375; 96376; 99291; G0378; J1815; J2785; A9502; J2270; J3475; J7120; U0003